=== PATIENT | male | born 2000 | race Two or more races ===

== ENCOUNTER 2022-10-18 01:10 | Emergency (ER) | payer OTHER ==
[~2022-10-18] VITALS: Ht 182.9 cm; Wt 62.7 kg
[2022-10-18 01:10] VITALS: BP 120/74
== END 2022-10-18 03:28 | disposition left against medical advice (07) ==
LOC: ER 01:14
DX: M54.2 Cervicalgia (principal); M25.512 Pain in left shoulder; M54.89 Other dorsalgia; Z53.21 Procedure and treatment not carried out due to patient leaving prior to being seen by health care provider
CPT/HCPCS: 73030; 73080